=== PATIENT | female | born 1950 | race Caucasian/White ===

== ENCOUNTER 2017-09-17 14:31 | Outpatient (CLI) | payer MEDICARE, OTHER ==
[~2017-09-17 14:31] MED LIST: AMARYL4 MG PO; AMITRIPTYLINE25 MG PO; AMOXICILLIN500 MG PO; ASPIR-LOW81 MG PO; BACTRIM-DS1 EA PO; CIPRO500 MG PO; GLUCOPHAGE500 MG PO; HUMALOG MI100 UNIT/6 SQ; IBUPROFEN600 MG ORAL; JANUVIA100 MG PO; LEVOTHYROXINE25 MCG PO; METOPROLOL SUCC50 MG PO; OFLOXACIN10 ML OP; PROTONIX40 MG PO; ZESTRIL10 MG PO
[2017-09-17 14:32] VITALS: BP 116/73
--- NOTE | 2017-09-17 15:29 | GI Initial Consult Note ---
EditaRadha Bsuh N.P. 09/17/17 1529: History of Present Illness General Date patient seen: Sep 17, 2017 Time patient seen: 15:21 Referring physician: DEANNA Reason for Consultation: SCREENING COLONOSCOPY Present Illness HPI 67 year old female patient referred by Dr. Franklin presents today for colonoscopy screening. The patients last EGD/colonoscopy was performed in 2004. In addition the patient presents with complaint of generalized abdominal pain, constipation, N/V and painful bowel movements. Denies any unintentional weight loss or dietary changes. Patient states she was 220 lbs in 2012, but has been dieting to lose weight. Home Meds Active Scripts Ibuprofen* (MOTRIN*) 600 Mg Tablet, 600 MG ORAL Q6H Y for For Pain, #30 TAB Prov:DARIEL BARRIOS P.A. 11/06/16 Ofloxacin (Ofloxacin) 10 Ml Drops, 10 ML OP BID for 7 Days, 0 Refills Prov:TAPAN ESQUIVEL P.ASaida 10/31/12 Reported Medications Insulin Npl/Insulin Lispro (HUMALOG MIX 75-25 VIAL) 100 Unit/1 Ml Vial, 50 SQ BID 10/31/12 Metoprolol Succinate* (METOPROLOL SUCCINATE*) 50 Mg Tab.er.24h, 50 MG PO DAILY, #30 TAB 10/31/12 Glimepiride* (AMARYL*) 4 Mg Tablet, 4 MG PO DAILY, #10 TAB 10/31/12 Levothyroxine Sodium* (LEVOTHYROXINE SODIUM*) 25 Mcg Tablet, MCG PO DAILY 10/31/12 Metformin Hcl* (GLUCOPHAGE*) 500 Mg Tablet, 1000 MG PO BID, #20 TAB Take one tablet by mouth twice a day 10/31/12 Lisinopril* (ZESTRIL*) 10 Mg Tablet, 10 MG PO DAILY, #10 TAB Take 1 tablet by mouth every day. 10/31/12 Sitagliptin (Januvia) 100 Mg Tab, 100 MG PO DAILY 10/31/12 Amitriptyline HCl (ELAVIL*) 25 Mg Tab, 25 MG PO QHS for 10 Days, TAB Take 1 tablet by mouth every nigh.t 10/31/12 Aspirin* (ASPIR-LOW*) 81 Mg Tablet., 81 MG PO DAILY, TAB 10/31/12 Pantoprazole* (PROTONIX*) 40 Mg Tablet., 40 MG PO DAILY, #10 TAB 10/31/12 Amoxicillin* (AMOXIL*) 500 Mg Capsule, 500 MG PO Q8H, #14 CAP 10/31/12 Discontinued Scripts Trimethoprim/Sulfamethoxazole (Bactrim Ds Tablet) 1 Ea Tab, 1 TAB PO BID, #14 TAB Prov:TAPAN ESQUIVEL P.A. 10/31/12 Ciprofloxacin* (CIPRO*) 500 Mg Tablet, 500 MG PO BID, #14 TAB Prov:TAPAN ESQUIVEL P.A. 10/31/12 Med list reviewed/reconciled: Yes Allergies: Coded Allergies: No Known Allergies (Unverified , 10/31/12) Patient History History Provided By: Patient, Medical Record PMH Narrative [place] Palsy Depression HTN Diverticulitis DM Past Surgical History: Lap appy cholecystectomy Family History Narrative Family history of DM, heart, HTN and thyroid disease. Social History: Reports: smoking, other - coffee Review of Systems All Other Systems: negative except mentioned in HPI Physical Exam T 98.1 BP 116/73 P 102 97 RA WT 142.9 lbs Sp02 EP Interpretation: reviewed, normal General Appearance: well appearing, no apparent distress, alert Head: normocephalic EENT: PERRL/EOMI, normal ENT inspection Neck: supple Respiratory: normal breath sounds, no respiratory distress Cardiovascular: normal rate Gastrointestinal: normal inspection, non tender, soft, normal bowel sounds, non -distended Rectal: deferred Genitourinary: no CVA tenderness Musculoskeletal: normal inspection, back normal Neurologic: normal inspection, alert, oriented x3, responsive Psychiatric: normal inspection, judgement/insight normal, memory normal Skin: normal inspection, normal color, no rash, warm/dry, palpation normal, well hydrated Lymphatic: normal inspection, no adenopathy GI: Plan Problems: (1) Depression (2) HTN (hypertension) (3) Diverticulitis (4) Diabetes mellitus Plan EGD/colonoscopy scheduled 09/25/17. - CLD & (Nulytely/Suprep) prep instructions given and acknowledged by patient. - N[facility] @ [facility] day prior procedure explained. Seen with Dr. Draper. Thank you for this patient referral. PRITI DRAPER 09/18/17 0936: History of Present Illness Present Illness Home Meds Active Scripts Ibuprofen* (MOTRIN*) 600 Mg Tablet, 600 MG ORAL Q6H Y for For Pain, #30 TAB Prov:DARIEL BARRIOS P.A. 11/06/16 Ofloxacin (Ofloxacin) 10 Ml Drops, 10 ML OP BID for 7 Days, 0 Refills Prov:TAPAN ESQUIVEL P.A. 10/31/12 Reported Medications Insulin Npl/Insulin Lispro (HUMALOG MIX 75-25 VIAL) 100 Unit/1 Ml Vial, 50 SQ BID 10/31/12 Metoprolol Succinate* (METOPROLOL SUCCINATE*) 50 Mg Tab.er.24h, 50 MG PO DAILY, #30 TAB 10/31/12 Glimepiride* (AMARYL*) 4 Mg Tablet, 4 MG PO DAILY, #10 TAB 10/31/12 Levothyroxine Sodium* (LEVOTHYROXINE SODIUM*) 25 Mcg Tablet, MCG PO DAILY 10/31/12 Metformin Hcl* (GLUCOPHAGE*) 500 Mg Tablet, 1000 MG PO BID, #20 TAB Take one tablet by mouth twice a day 10/31/12 Lisinopril* (ZESTRIL*) 10 Mg Tablet, 10 MG PO DAILY, #10 TAB Take 1 tablet by mouth every day. 10/31/12 Sitagliptin (Januvia) 100 Mg Tab, 100 MG PO DAILY 10/31/12 Amitriptyline HCl (ELAVIL*) 25 Mg Tab, 25 MG PO QHS for 10 Days, TAB Take 1 tablet by mouth every nigh.t 10/31/12 Aspirin* (ASPIR-LOW*) 81 Mg Tablet.dr, 81 MG PO DAILY, TAB 10/31/12 Pantoprazole* (PROTONIX*) 40 Mg Tablet.dr, 40 MG PO DAILY, #10 TAB 10/31/12 Amoxicillin* (AMOXIL*) 500 Mg Capsule, 500 MG PO Q8H, #14 CAP 10/31/12 Discontinued Scripts Trimethoprim/Sulfamethoxazole (Bactrim Ds Tablet) 1 Ea Tab, 1 TAB PO BID, #14 TAB Prov:TAPAN ESQUIVEL P.A. 10/31/12 Ciprofloxacin* (CIPRO*) 500 Mg Tablet, 500 MG PO BID, #14 TAB Prov:TAPAN ESQUIVEL P.A. 10/31/12 Allergies: Coded Allergies: No Known Allergies (Unverified , 10/31/12) GI: Plan Plan The patient was seen and examined at bedside and all new and available data was reviewed in the patients chart. I agree with the above findings, impression and plan. (Patient seen earlier today. Signature stamp does not reflect patient encounter time.). - MD Edita Martínez Anh Khoi N.P. Sep 17, 2017 15:29 PRITI DRAPER Sep 18, 2017 09:36
== END 2017-09-17 15:00 | disposition home or self-care (01) ==
LOC: PAN 14:31
DX: K57.92 Diverticulitis of intestine, part unspecified, without perforation or abscess without bleeding (principal); F32.9 Major depressive disorder, single episode, unspecified; I10 Essential (primary) hypertension; E11.9 Type 2 diabetes mellitus without complications; K59.00 Constipation, unspecified; Z79.4 Long term (current) use of insulin; Z79.82 Long term (current) use of aspirin; G51.0 Bell's palsy; F17.200 Nicotine dependence, unspecified, uncomplicated; Z90.49 Acquired absence of other specified parts of digestive tract; Z83.3 Family history of diabetes mellitus; Z82.49 Family history of ischemic heart disease and other diseases of the circulatory system
CPT/HCPCS: 99201

== ENCOUNTER 2017-09-25 08:24 | Day surgery (SDC) | payer MEDICARE, MEDICAID ==
[~2017-09-25] VITALS: Ht 149.9 cm; Wt 64.4 kg
[2017-09-25] VITALS (8 sets, daily range): BP systolic 101–116; BP diastolic 58–77
[2017-09-25] MEDS ORDERED: LEXAPRO10 MG ORAL (09:20)
--- NOTE | 2017-09-25 10:41 | Pre-Procedure Note/Attestation ---
Pre-Procedure Note/Attestation Complete Prior to Procedure Planned Procedure: not applicable Procedure Narrative: EGD/COLONOSCOPY Indications for Procedure Pre-Operative Diagnosis: SCREENING COLON, GERD Attestation I attest that I discussed the nature of the procedure; its benefits; risks and complications; and alternatives (and the risks and benefits of such alternatives ), prior to the procedure, with the patient (or the patient's legal junior sales representative). I attest that, if there was a reasonable possibility of needing a blood transfusion, the patient (or the patient's legal junior sales representative) was given the [facility] standardized written summary, pursuant to the Gunner Jw Blood Safety Act ([place] Health and Safety Code # 1645, as amended). I attest that I re-evaluated the patient just prior to the surgery and that there has been no change in the patient's H&P, except as documented below: PRITI DRAPER Sep 25, 2017 10:41
--- NOTE | 2017-09-25 10:41 | Short Stay Surgery H&P ---
History of Present Illness History of Present Illness Chief Complaint SEE DICTATION HAI Nara Caban is a 67 year old female who was admitted on for Colon Screening, Gerd Patient History Allergies: Coded Allergies: No Known Allergies (Unverified , 10/31/12) PAST MEDICAL HISTORY: Past Surgeries: Social History: Medication History Scheduled Aspirin* (Aspir-Low*), 81 MG PO DAILY, (Reported) Escitalopram Oxalate* (Lexapro*), Unknown Dose ORAL DAILY, (Reported) Glimepiride* (Amaryl*), 4 MG PO DAILY, (Reported) Levothyroxine Sodium* (Levothyroxine Sodium*), MCG PO DAILY, (Reported) Lisinopril* (Zestril*), 10 MG PO DAILY, (Reported) Metformin Hcl* (Glucophage*), 1,000 MG PO DAILY, (Reported) Discontinued Medications Amitriptyline HCl (Elavil*), 25 MG PO QHS, (Reported) Discontinued Reason: Pt stopped taking med Amoxicillin* (Amoxil*), 500 MG PO Q8H, (Reported) Discontinued Reason: Pt stopped taking med Ibuprofen* (Motrin*), 600 MG ORAL Q6H PRN for For Pain Discontinued Reason: Pt stopped taking med Insulin Npl/Insulin Lispro (Humalog Mix 75-25 Vial), 50 SQ BID, (Reported) Discontinued Reason: Pt stopped taking med Metoprolol Succinate* (Metoprolol Succinate*), 50 MG PO DAILY, (Reported) Discontinued Reason: Pt stopped taking med Ofloxacin (Ofloxacin), 10 ML OP BID Discontinued Reason: Pt stopped taking med Pantoprazole* (Protonix*), 40 MG PO DAILY, (Reported) Discontinued Reason: Pt stopped taking med Sitagliptin (Januvia), 100 MG PO DAILY, (Reported) Discontinued Reason: Pt stopped taking med Physical Exam Vital Signs Last Vital Signs Date Time Temp Pulse Resp B/P (MAP) Pulse Ox O2 Delivery O2 Flow Rate FiO2 09/25/17 09:21 97.4 97 18 116/77 98 Room Air Plan Attestation Are the patient's medical conditions optimized for surgery? PRITI DRAPER Sep 25, 2017 10:41
--- NOTE | 2017-09-25 10:41 | Pre-Procedure Note/Attestation ---
Pre-Procedure Note/Attestation Complete Prior to Procedure Planned Procedure: not applicable Procedure Narrative: EGD/COLONOSCOPY Indications for Procedure Pre-Operative Diagnosis: SCREENING COLON, GERD Attestation I attest that I discussed the nature of the procedure; its benefits; risks and complications; and alternatives (and the risks and benefits of such alternatives ), prior to the procedure, with the patient (or the patient's legal business center representative). I attest that, if there was a reasonable possibility of needing a blood transfusion, the patient (or the patient's legal business center representative) was given the [facility] Services standardized written summary, pursuant to the Gunner Jw Blood Safety Act ([place] Health and Safety Code # 1645, as amended). I attest that I re-evaluated the patient just prior to the surgery and that there has been no change in the patient's H&P, except as documented below: PRITI DRAPER Sep 25, 2017 10:41
--- NOTE | 2017-09-25 10:41 | Pre-Procedure Note/Attestation ---
Pre-Procedure Note/Attestation Complete Prior to Procedure Planned Procedure: not applicable Procedure Narrative: EGD/COLONOSCOPY Indications for Procedure Pre-Operative Diagnosis: SCREENING COLON, GERD Attestation I attest that I discussed the nature of the procedure; its benefits; risks and complications; and alternatives (and the risks and benefits of such alternatives ), prior to the procedure, with the patient (or the patient's legal leasing representative). I attest that, if there was a reasonable possibility of needing a blood transfusion, the patient (or the patient's legal leasing representative) was given the [facility] Services standardized written summary, pursuant to the Gunner Jw Blood Safety Act ([place] Health and Safety Code # 1645, as amended). I attest that I re-evaluated the patient just prior to the surgery and that there has been no change in the patient's H&P, except as documented below: PRITI DRAPER Sep 25, 2017 10:41
[2017-09-25] MEDS ORDERED: Propofol 200mg/20ml IV ONE (11:00)
[2017-09-25] MEDS ORDERED: LR 1000ml ONE (11:00)
[2017-09-25] MEDS ORDERED: Midazolam 2mg/2ml Inj ONE (11:00)
[2017-09-25] MEDS ORDERED: fentaNYL 100 mcg/2 mL IV ONE (11:00)
--- NOTE | 2017-09-25 11:50 | Endoscopy Procedure Note ---
Endoscopy Procedure Note Indication for Procedure: SCREENING COLON, gerd Procedures Performed: EGD, colonoscopy Operative Findings/Diagnosis: poor prep, gastritis Specimen: yes Pt Tolerated Procedure Well: Yes Estimated Blood Loss: none Anesthesiologist: see chart Anesthesia: MAC Implant(s) used?: No 50 yrs or older w/o bx or poly: No 10yrs. F/U not recommended: Yes If not recommended, why?: Above average risk 10 yrs. F/U needed: Yes 18 years or older w/prev. colo: No PRITI DRAPER Sep 25, 2017 11:50
--- NOTE | 2017-09-25 22:00 | Procedure Note ---
DATE OF PROCEDURE: 09/25/2017 SURGEON: Kuldeep Rodriguez M.D. PROCEDURE: Upper endoscopy with biopsy and colonoscopy. ANESTHESIA: See the chart. INSTRUMENT: Olympus adult flexible upper endoscope and colonoscope. INDICATION: Screening colonoscopy evaluation and abdominal pain and GERD. The procedure, risks, benefits, and possible consequences, including hemorrhage, aspiration, perforation and infection, and alternative treatments, were explained to the patient/legal guardian by Dr. Kuldeep Rodriguez and the patient/legal guardian understood and accepted these risks. DESCRIPTION OF PROCEDURE: After informed consent was obtained and the patient was adequately sedated, Olympus upper endoscope was advanced from the mouth into the second portion of the duodenum and retroflexion was performed in the stomach. The patient had few erosions in the antrum. Biopsy from antrum and body was obtained to rule out H. pylori infection. At this time, the upper endoscope was retrieved and the patient was turned over for colonoscopy. First, a rectal exam was performed, which was normal. Then, the scope was advanced from the rectum into the cecum documented by appendiceal orifice, ileocecal valve, and right upper quadrant palpation. Quality of prep was not good. About 30% to 35% of the colonic mucosa was not examined given this prep. The patient had a fluid layering up in the mid transverse colon and also left colon. Again 30% to 35% of the colonic mucosa was not examined given this prep. Retroflexion of rectum showed evidence of internal hemorrhoids. SUMMARY OF FINDINGS: 1. Gastritis, status post biopsy. 2. Poor colonic prep, see above for details. 3. Internal hemorrhoids. RECOMMENDATIONS: 1. Follow up biopsy results and treat accordingly. 2. Recommend repeat colonoscopy in three years given this poor prep. Kuldeep Rodriguez M.D. DR: RADHA JOB#: [id number] CC:
--- NOTE | 2017-09-26 14:45 | Cardiology Report ---
APPROVED REPORT EKG Measurement Heart [id number] [place] [id number] Normal sinus rhythm Normal ECG
--- NOTE | 2017-09-26 14:45 | Cardiology Report ---
APPROVED REPORT EKG Measurement Heart [id number] [place] [id number] [id number] Normal sinus rhythm Normal ECG
--- NOTE | 2017-09-26 14:45 | Cardiology Report ---
APPROVED REPORT EKG Measurement Heart [id number] [place] 158P64 [id number] Normal sinus rhythm Normal ECG
== END 2017-09-25 14:10 | disposition home or self-care (01) ==
LOC: GAS 08:24
DX: Z12.11 Encounter for screening for malignant neoplasm of colon (principal); K29.50 Unspecified chronic gastritis without bleeding; R10.9 Unspecified abdominal pain; K21.9 Gastro-esophageal reflux disease without esophagitis; K64.8 Other hemorrhoids; Z79.82 Long term (current) use of aspirin
CPT/HCPCS: 43239; 45378; 82962; 93005; J2250; J2704; J3010; J7120; 94003; 94150

== ENCOUNTER 2017-10-22 14:37 | Outpatient (CLI) | payer MEDICARE, MEDICAID ==
[~2017-10-22 14:37] MED LIST changes: +LEXAPRO10 MG ORAL
[2017-10-22 14:54] VITALS: BP 137/75
[2017-10-22] MEDS ORDERED: ABX FOR BRONCHITIS (14:56)
--- NOTE | 2017-10-22 15:47 | GI Progress Note ---
Assessment/Plan Problems: (1) Constipation ICD Codes: K59.00 - Constipation, unspecified SNOMED: 59344408 (2) Nausea ICD Codes: R11.0 - Nausea SNOMED: 018410369 (3) Abdominal pain ICD Codes: R10.9 - Unspecified abdominal pain SNOMED: 64058532 Status: stable Status Narrative Seen with Dr. Rodriguez. Assessment/Plan s/p EGD/colonoscopy SUMMARY OF FINDINGS reviewed with patient: 1. Gastritis, status post biopsy. 2. Poor colonic prep, see above for details. 3. Internal hemorrhoids. RECOMMENDATIONS: Rx Miralax daily Follow up biopsy results and treat accordingly. >> negative for H. Pylori RTC x 3 months recommend repeat colonoscopy in two years given this poor prep. Subjective Subjective egd/colonoscopy review denies abdominal pain constipation decreased nausea bronchitis after colonoscopy starting recovery, but still has cough. Objective Last 24 Hour Vital Signs Date Time Temp Pulse Resp B/P (MAP) Pulse Ox O2 Delivery O2 Flow Rate FiO2 10/22/17 14:54 97.7 98 16 137/75 98 General Appearance: WD/WN, no apparent distress, alert Cardiovascular: normal rate Respiratory/Chest: normal breath sounds, no respiratory distress Abdominal Exam: normal bowel sounds, non tender, soft Extremities: normal range of motion, non-tender Radha Kohler N.P. Oct 22, 2017 15:47
== END 2017-10-22 15:10 | disposition home or self-care (01) ==
LOC: PAN 14:37
DX: K59.00 Constipation, unspecified (principal); R11.0 Nausea; R10.9 Unspecified abdominal pain; K29.70 Gastritis, unspecified, without bleeding; K64.8 Other hemorrhoids; J20.9 Acute bronchitis, unspecified
CPT/HCPCS: 99212

== ENCOUNTER 2018-10-22 05:34 | Day surgery (SDC) | payer MEDICARE, MEDICAID ==
[2018-10-22] VITALS (11 sets, daily range): BP systolic 90–135; BP diastolic 41–79
[~2018-10-22] VITALS: Ht 149.9 cm; Wt 66.2 kg
[~2018-10-22 05:34] MED LIST changes: +ABX FOR BRONCHITIS
[2018-10-22] MEDS ORDERED: cefOXitin Sod 1 GM in D5W 55 ML IVPB ONE (07:00)
[2018-10-22] MEDS ORDERED: NS Irrig 1000ml ONE (07:30)
[2018-10-22] MEDS ORDERED: Sterile Water Irrig 1000ml IRRIG ONE (07:30)
[2018-10-22] MEDS ORDERED: LR 1000ml ONE (07:30)
--- NOTE | 2018-10-22 07:41 | Pre-Procedure Note/Attestation ---
Pre-Procedure Note/Attestation Complete Prior to Procedure Procedure Narrative: dilation and curettage hysteroscopy Indications for Procedure Pre-Operative Diagnosis: postmenopausal bleeding and possible endometrial hyperplasia Attestation I attest that I discussed the nature of the procedure; its benefits; risks and complications; and alternatives (and the risks and benefits of such alternatives ), prior to the procedure, with the patient (or the patient's legal vendor representatives). I attest that, if there was a reasonable possibility of needing a blood transfusion, the patient (or the patient's legal vendor representatives) was given the [facility] Services standardized written summary, pursuant to the Gunner Jw Blood Safety Act ([place] Health and Safety Code # 1645, as amended). I attest that I re-evaluated the patient just prior to the surgery and that there has been no change in the patient's H&P, except as documented below: Jenniffer Cardoso MD Oct 22, 2018 07:41
--- NOTE | 2018-10-22 07:41 | Anethesia Preoperative Eval ---
Anesthesia Pre-op PMH/ROS General Date of Evaluation: Oct 22, 2018 Anesthesiologist: Jamaal ASA Score: ASA 3 Mallampati Score Class I : Soft palate, uvula, fauces, pillars visible Class II: Soft palate, uvula, fauces visible Class III: Soft palate, base of uvula visible Class IV: Only hard plate visible Mallampati Classification: Class III Surgeon: Janae Diagnosis: Endometrial hyperplasia Surgical Procedure: Hysteroscopy, D&C Anesthesia History: none Family History: no anesthesia problems Allergies: Coded Allergies: No Known Allergies (Unverified , 10/31/12) Medications: see eMAR Patient NPO?: Yes NPO Date: Oct 21, 2018 NPO Time: 23:00 Past Medical History Cardiovascular: Reports: HTN; Denies: CAD, MD, valve dz, arrhythmia, other Pulmonary: Denies: asthma, COPD, BHUPENDRA, other Gastrointestinal/Genitourinary: Reports: other - gastritis; Denies: GERD, CRI, ESRD Neurologic/Psychiatric: Reports: depression/anxiety, other - bells palsy; Denies: dementia, CVA, TIA Endocrine: Reports: DM, hypothyroidism; Denies: steroids, other HEENT: Reports: cataract (L), cataract (R), glaucoma; Denies: [place] (L), [place] (R), other Hematology/Immune: Denies: anemia, DVT, bleeding disorder, other Musculoskeletal/Integumentary: Reports: OA; Denies: RA, DJD, DDD, edema, other PSxH Narrative: lap marcela, lap appy Anesthesia Pre-op Phys. Exam Physician Exam Last Vital Signs Date Time Temp Pulse Resp B/P (MAP) Pulse Ox O2 Delivery O2 Flow Rate FiO2 10/22/18 06:21 Room Air 10/22/18 06:16 98.0 97 18 126/71 96 Constitutional: NAD Cardiovascular: RRR Respiratory: CTA Airway Exam Mallampati Score: Class III MO: limited Dentures: upper Anesthesia Pre-op A/P Labs see chart Studies Pre-op Studies: EKG - sr Risk Assessment & Plan Assessment: ASA III Plan: GA Status Change Before Surgery: No Pre-Antibiotics Drug: Carleen Dietz MD Oct 22, 2018 07:41
[2018-10-22] MEDS ORDERED: LR 1000ml 1,000 ML IVLG SCH (07:42)
[2018-10-22] MEDS ORDERED: Lidocaine 1% MPF 10mg/ml 5ml ONE (07:43)
[2018-10-22] MEDS ORDERED: Propofol 200mg/20ml IV ONE (07:43)
[2018-10-22] MEDS ORDERED: cefOXitin 1gm Inj ONE (07:43)
[2018-10-22] MEDS ORDERED: Hydromorphone 0.5mg/0.5ml inj IVP PRN (07:45)
[2018-10-22] MEDS ORDERED: Metoclopramide 10mg/2ml Inj IVP PRN (07:45)
[2018-10-22] MEDS ORDERED: Norco 5mg/325mg tab ORAL PRN (07:45)
[2018-10-22] MEDS ORDERED: fentaNYL 100 mcg/2 mL IV PRN (07:45)
[2018-10-22] MEDS ORDERED: D5 1/2NS 1,000 ML IV SCH (07:45)
[2018-10-22] MEDS ORDERED: Ketorolac 30mg Inj IV PRN (07:45)
[2018-10-22] MEDS ORDERED: Tylenol #3 tab (300mg/30mg) ORAL PRN (07:45)
[2018-10-22] MEDS ORDERED: HYDROmorphone 1mg/ml Carpuject SUBQ PRN (07:45)
[2018-10-22] MEDS ORDERED: DiphenhydrAMINE 50mg/ml Inj IVP PRN ×2 (07:45)
[2018-10-22] MEDS ORDERED: Glycopyrrolate 0.2mg/ml 1ml Vial ONE (07:57)
[2018-10-22] MEDS ORDERED: Midazolam 2mg/2ml Inj ONE (08:12)
--- NOTE | 2018-10-22 08:25 | Brief Operative Note ---
Immediate Post Operative Note Operative Note Pre-op Diagnosis: postmenopausal bleeding and possible endometrial hyperplasia Procedure: hysteroscopy dilation and curettage Post-op Diagnosis: same Surgeon: vin Anesthesia: general Specimen: yes Complications: none Condition: stable Fluids: crystalloid Estimated Blood Loss: minimal Implant(s) used?: No Jenniffer Cardoso MD Oct 22, 2018 08:25
--- NOTE | 2018-10-22 08:32 | Immediate Post-Op Evaluation ---
Immediate Post-Op Evalulation Immediate Post-Op Evalulation Procedure: hysteroscopy, D&C Date of Evaluation: Oct 22, 2018 Time of Evaluation: 08:34 IV Fluids: 700 Blood Products: 0 Estimated Blood Loss: min Urinary Output: 0 Blood Pressure Systolic: 95 Blood Pressure Diastolic: 41 Pulse Rate: 98 Respiratory Rate: 18 O2 Sat by Pulse Oximetry: 98 Temperature (Fahrenheit): 99.3 Pain Score (1-10): 0 Nausea: No Vomiting: No Complications 0 Patient Status: awake, reacts, patent, none Hydration Status: adequate Drug: Cefoxitin 1g Given Within 1 Hr of Incision: Yes Time Given: 07:45 Carleen Batres MD Oct 22, 2018 08:32
--- NOTE | 2018-10-22 08:33 | 48 Hour Post Anesthesia Eval ---
Post Anesthesia Evaluation Procedure: hysteroscopy, D&C Date of Evaluation: Oct 22, 2018 Airway: patent Nausea: No Vomiting: No Pain Intensity: 0 Hydration Status: adequate Cardiopulmonary Status: at baseline Mental Status/LOC: patient returned to baseline Post-Anesthesia Complications: 0 Follow-up care needed: ready to discharge Carleen Batres MD Oct 22, 2018 08:33
--- NOTE | 2018-10-22 12:45 | Operative Note - Dictated ---
PREOPERATIVE DIAGNOSIS: Postmenopausal bleeding, possible endometrial hyperplasia. POSTOPERATIVE DIAGNOSES: Postmenopausal bleeding, possible endometrial hyperplasia and endometrial polyp. PROCEDURE: Hysteroscopy, D and C. SURGEON: Jenniffer Cardoso M.D. PATTERN VAULT CLERK: None. ANESTHESIOLOGIST: Carleen Leo M.D. ANESTHESIA: General LMA. ESTIMATED BLOOD LOSS: Minimal. SPECIMEN: Polyp. PROCEDURE IN DETAIL: After ensuring informed consent, the patient was taken to the operating room where general anesthesia was induced. The patient was sterilely prepped and draped. Weighted speculum was placed in the vagina. Cervix was dilated to an 8 Hegar dilator. Hysteroscope was placed inside the uterine cavity. A benign-appearing polyp was observed emanating from the posterior uterine wall. Hysteroscope was withdrawn and using polyp forceps, the polyp was removed and then hysteroscope was placed back into the uterine cavity. Uterine cavity appeared to be clear of the polyp and both ostia were visualized. Next, fractional curettage was performed. All specimens were sent to pathology. All instruments were removed from the vagina. At the completion of the procedure, excellent hemostasis was assured. All instrument and lap counts were correct x2. The patient was taken to the recovery area stable and breathing on her own. Jenniffer Cardoso M.D. DR: RAMA JOB#: [id number] CC:
--- NOTE | 2018-10-22 13:15 | Operative Note - Dictated ---
DATE OF OPERATION: 10/22/2018 PREOPERATIVE DIAGNOSIS: Postmenopausal bleeding, possible endometrial hyperplasia. POSTOPERATIVE DIAGNOSES: Postmenopausal bleeding, possible endometrial hyperplasia and endometrial polyp. PROCEDURE: Hysteroscopy, D and C. SURGEON: Jenniffer Cardoso M.D. GENERAL FREIGHT AGENT: None. ANESTHESIOLOGIST: Carleen Leo M.D. ANESTHESIA: General LMA. ESTIMATED BLOOD LOSS: Minimal. SPECIMEN: Polyp. PROCEDURE IN DETAIL: After ensuring informed consent, the patient was taken to the operating room where general anesthesia was induced. The patient was sterilely prepped and draped. Weighted speculum was placed in the vagina. Cervix was dilated to an 8 Hegar dilator. Hysteroscope was placed inside the uterine cavity. A benign-appearing polyp was observed emanating from the posterior uterine wall. Hysteroscope was withdrawn and using polyp forceps, the polyp was removed and then hysteroscope was placed back into the uterine cavity. Uterine cavity appeared to be clear of the polyp and both ostia were visualized. Next, fractional curettage was performed. All specimens were sent to pathology. All instruments were removed from the vagina. At the completion of the procedure, excellent hemostasis was assured. All instrument and lap counts were correct x2. The patient was taken to the recovery area stable and breathing on her own. Jenniffer Cardoso M.D. DR: RAMA JOB#: [id number] CC:
== END 2018-10-22 10:30 | disposition home or self-care (01) ==
LOC: SUR 05:34
DX: N95.0 Postmenopausal bleeding (principal); N84.0 Polyp of corpus uteri; E11.9 Type 2 diabetes mellitus without complications; E03.9 Hypothyroidism, unspecified; F32.9 Major depressive disorder, single episode, unspecified; F41.9 Anxiety disorder, unspecified; I10 Essential (primary) hypertension; H40.9 Unspecified glaucoma; M19.90 Unspecified osteoarthritis, unspecified site; G51.0 Bell's palsy; F17.200 Nicotine dependence, unspecified, uncomplicated; Z87.19 Personal history of other diseases of the digestive system
CPT/HCPCS: 58558; 82962; J0694; J2250; J2704; J3010; 94003; 94150